=== PATIENT | male | born 2000 | race Two or more races ===

== ENCOUNTER 2022-09-11 15:18 | Emergency (ER) | payer OTHER ==
[~2022-09-11] VITALS: Ht 182.9 cm; Wt 63.5 kg
== END 2022-09-11 22:14 | disposition home or self-care (01) ==
LOC: ER 15:18
DX: S06.0XAA Concussion with loss of consciousness status unknown, initial encounter (principal); W01.0XXA Fall on same level from slipping, tripping and stumbling without subsequent striking against object, initial encounter; Y93.89 Activity, other specified; Y92.69 Other specified industrial and construction area as the place of occurrence of the external cause; Y99.8 Other external cause status; S09.8XXA Other specified injuries of head, initial encounter

== ENCOUNTER 2022-09-26 22:02 | Inpatient (IN) | payer OTHER ==
[~2022-09-26] VITALS: Ht 182.9 cm; Wt 59.0 kg
--- NOTE | 2022-09-26 22:06 | NUR ---
SE RECIBE MASCULINO ALERTA Y ORIENTADO X3 EN AMBULANCIA QUIEN REFIERE HABERSE DESMAYADO EN EL TRABAJO. SE REALIZA EKG Y SE PRESENTA A DR ARCHULETA. SE UBICA
--- NOTE | 2022-09-26 22:22 | NUR ---
SE ORIENTA PTE SOBRE TX A SEGUIR, EL CUAL REFIERE ENTENDER. SE COLECTAN MUESTRAS UTILIZANDO MEDIDAS ASEPTICAS. PTE FUE CANALIZADO EN AMBULANCIA CON ANGIO #[address] PATENTE. AREA DE VENOPUNCION GIANNA DE EDEMA Y ERITEMA. SE ADM. MEDICAMENTOS JOAQUÍN ORDEN MEDICA. SE HACE ENTREGA DE ENVASE PARA MUESTRA DE UA PEND. PEND CT DE DOROTHY.
--- NOTE | 2022-09-27 01:29 | NUR ---
PTE MASCULINO ALERTA Y ORIENTADO EN LAS JITENDRA ESFERAS ES RE-EVALUADO POR . SE ORIENTA SOBRE ORDENES DE TX REFIERE COMPRENDER. SE ADMINISATRA MEDICAMENTO, BAJO MEDIDAS ASEPTICAS. SE CONECTA A MONITOR CARDIACO Y OXIMETRIA DE PULSO CONTINUA, JOAQUÍN ORDEN MEDICA. SE MANTIENE PTE BAJO OBSERVACION POR CAMBIOS.
--- NOTE | 2022-09-27 08:15 | NUR ---
SE RECIBE PTE MASCULINO DE 21 YRS ALERTA CONCIENTE Y TRANQUILO EN COMPANIA DE FAMILIAR. PTE SE LE DAYA S/V Y SE ENVIA A ESTUDIO DE MRI . [facility] SE MANTIENE EN ESPERA DE MEDICO CONSULTOR, .
== END 2022-09-29 12:38 | disposition home or self-care (01) | DRG 101 ==
LOC: ER 22:02 → SEC-K 09-27 14:58 → MEDI 09-27 16:45
PROVIDERS: ADMIT Specialist; ATTEND Specialist
PROC: BW38ZZZ Magnetic Resonance Imaging (MRI) of Head (ICD-10-PCS; principal; 2022-09-27)
PROC: BW28ZZZ Computerized Tomography (CT Scan) of Head (ICD-10-PCS; 2022-09-27)
DX: G40.909 Epilepsy, unspecified, not intractable, without status epilepticus (principal); S09.90XA Unspecified injury of head, initial encounter; F12.21 Cannabis dependence, in remission
CPT/HCPCS: 70544

== ENCOUNTER 2022-10-08 21:53 | Emergency (ER) | payer OTHER ==
[~2022-10-08] VITALS: Ht 182.9 cm; Wt 61.2 kg
== END 2022-10-09 03:47 | disposition home or self-care (01) ==
LOC: ER 21:53
DX: G40.89 Other seizures (principal)